=== PATIENT | female | born 1975 | race Hispanic/Latino ===

== ENCOUNTER 2018-03-19 00:54 | Emergency (ER) | payer MEDICAID ==
[2018-03-19 01:05] VITALS: BP 138/77; PULSE 74; RESP 18; TEMP 98.9; O2SAT 99
--- NOTE | 2018-03-19 01:48 | ED PDOC ---
HPI: Psych/Substance Abuse Chief Complaint (Provider): Alcohol abuse History Per: Patient, EMS History/Exam Limitations: no limitations Additional Complaint(s): Pt states she has been drinking tonight. Denies complaints. Denies drug use. <Rowena Weinberg - Last Filed: 03/19/18 05:15> <Rachael Zambrano - Last Filed: 03/20/18 17:45> Time Seen by Provider: 03/19/18 01:08 Chief Complaint (Nursing): Alcohol Ingestion Past Medical History Reviewed: Historical Data, Nursing Documentation, Vital Signs Vital Signs: Last Vital Signs Temp 98.9 F 03/19/18 01:02 Pulse 74 03/19/18 01:02 Resp 18 03/19/18 01:02 BP 138/77 03/19/18 01:02 Pulse Ox 99 03/19/18 01:02 - Medical History PMH: No Chronic Diseases - Surgical History Surgical History: No Surg Hx - Family History Family History: States: No Known Family Hx - Living Arrangements Living Arrangements: With Family - Social History Current smoker - smoking cessation education provided: No <Rowena Weinberg - Last Filed: 03/19/18 05:15> Vital Signs: Last Vital Signs Temp 98.9 F 03/19/18 01:02 Pulse 74 03/19/18 01:02 Resp 18 03/19/18 01:02 BP 138/77 03/19/18 01:02 Pulse Ox 99 03/19/18 05:15 <Rachael Zambrano - Last Filed: 03/20/18 17:45> - Allergies Allergies/Adverse Reactions: Allergies Allergy/AdvReac Type Severity Reaction Status Date / Time tramadol Allergy SWELLING Verified 03/19/18 01:41 Review of Systems ROS Statement: Except As Marked, All Systems Reviewed And Found Negative Constitutional: Negative for: Fever, Chills Neurological: Negative for: Confusion, Dizziness Psych: Negative for: Suicidal ideation <Rowena Weinberg - Last Filed: 03/19/18 05:15> Physical Exam - Reviewed Nursing Documentation Reviewed: Yes Vital Signs Reviewed: Yes - Physical Exam Appears: Positive for: Well, Non-toxic, No Acute Distress Head Exam: Positive for: ATRAUMATIC, NORMAL INSPECTION, NORMOCEPHALIC Skin: Positive for: Normal Color, Warm, DRY Eye Exam: Positive for: Normal appearance ENT: Positive for: Normal ENT Inspection Neck: Positive for: Normal, Painless ROM Cardiovascular/Chest: Positive for: Regular Rate, Rhythm Respiratory: Positive for: Normal Breath Sounds. Negative for: Accessory Muscle Use, Respiratory Distress Back: Positive for: Normal Inspection Extremity: Positive for: Normal ROM Neurologic/Psych: Positive for: Alert, Oriented <Rowena Weinberg - Last Filed: 03/19/18 05:15> - ECG O2 Sat by Pulse Oximetry: 99 <Rowena Weinberg - Last Filed: 03/19/18 05:15> Medical Decision Making Medical Decision Making: AccuCheck 104. 1410 - Pt sleeping in bed, comfortable. 1540 - Pt continues to sleep. No acute distress. Breathing unlabored. <Rowena Weinberg - Last Filed: 03/19/18 05:15> Disposition - Patient ED Disposition Is Patient to be Admitted: No - Disposition Disposition Time: 06:00 <Rowena Weinberg - Last Filed: 03/19/18 05:15> - Patient ED Disposition Is Patient to be Admitted: No - Disposition Disposition: Routine/Home <Rachael Zambrano - Last Filed: 03/20/18 17:45> - Clinical Impression Clinical Impression: Alcohol abuse - Disposition Condition: STABLE Instructions: Effects of Alcohol on Your Health
== END 2018-03-19 06:51 | disposition home or self-care (01) ==
LOC: H.ER 00:54
DX: F10.10 Alcohol abuse, uncomplicated (principal)